=== PATIENT | female | born 1945 | race Caucasian/White ===

== ENCOUNTER 2016-04-27 16:06 | Inpatient (IN) | payer OTHER ==
--- NOTE | 2016-04-27 16:49 | EDPHY ---
H & P Stated Complaint: SOB, sent by PCP for suspect PNA HPI/ROS: CHIEF COMPLAINT: Dyspnea HISTORY OF PRESENT ILLNESS: The patient is a 70 year old female with history of COPD presenting with worsening dyspnea for the past 12 hours. The patient was seen by Dr. Cole over a week ago for upper respiratory infection and was started on Azithromycin. She took a 3 day course and finished the antibiotic yesterday. After being seen again in the office today she was told by her primary care physician to come to the Emergency Department for further evaluation regarding dyspnea with tachypnea. The patient wears 2L O2 at night. She has been unable to carry out her usual activities today because of dyspnea. She denies associated chest pain, calf pain, cough. She quit smoking a few months ago. She has been compliant with her medications including her bronchodilators and inhaled steroid. REVIEW OF SYSTEMS: A ten point review of systems was performed and is negative with the exception of the items mentioned in the HPI. Source: Patient Exam Limitations: No limitations - Personal History Current Tetanus/Diphtheria Vaccine: Yes Current Tetanus Diphtheria and Acellular Pertussis (TDAP): Yes Tetanus Vaccine Date: within 10 years - Medical/Surgical History Hx Asthma: Yes Hx Chronic Respiratory Disease: Yes Hx Diabetes: No Hx Cardiac Disease: Yes Hx Renal Disease: No Hx Cirrhosis: No Hx Alcoholism: No Hx HIV/AIDS: No Hx Splenectomy or Spleen Trauma: No Other PMH: Asthma, HTN, hyperlipidemia, afib s/p ablation in 2002 COPD, sepsis, , exploratory thoracotomy, cervical spine fusion, right knee surgery, L4-5 laminectomy, hemorrhoidectomy, peripheral neuropathy, hypothryoid, GERD - Social History Smoking Status: Former smoker Additional Social History: . Quit smoking a few months ago. - Physical Exam Exam: General Appearance: Alert. Vital signs reviewed. Tachypneic at 24, sitting upright, working to breathe. Eyes: Pupils equal and round, no conjunctival injection, no discharge. Anicteric. ENT, Mouth: Mucous membranes are moist, no oropharyngeal erythema or edema. Neck: No lymphadenopathy, supple. No JVD. Trachea midline. Respiratory: Diminished breath sounds with crackles on the left. Cardiovascular: Regular rate and rhythm; no murmur, rub, or gallop. Gastrointestinal: Abdomen is soft and nontender, no masses or organomegaly, bowel sounds normal. Skin: Warm and dry, no rashes on exposed skin, normal color. Back: Nontender to palpation over the thoracolumbar spine. No CVAT. Extremities: No lower extremity edema, no calf tenderness or swelling. Neurological: Alert and oriented. Moving all four extremities easily and equally. Psychiatric: Normal affect. Constitutional: Initial Vital Signs Temperature (C) 36.7 C 04/27/16 16:22 Heart Rate 91 04/27/16 16:22 Respiratory Rate 18 04/27/16 16:22 Blood Pressure 114/51 L 04/27/16 16:22 O2 Sat (%) 98 04/27/16 16:22 O2 Delivery Mode Room Air Allergies/Adverse Reactions: cortisone Allergy (Intermediate, Verified 09/02/15 12:39) swelling propafenone HCl [From Rythmol] Allergy (Intermediate, Verified 09/02/15 12:39) CONFUSION Sulfa (Sulfonamide Antibiotics) Allergy (Mild, Verified 09/02/15 12:39) Rash Home Medications: Medication Instructions Recorded Estradiol [Estradiol 1 MG (*)] 1 mg PO DAILY 04/27/16 Ezetimibe [Zetia 10 MG (*)] 10 mg PO HS 04/27/16 Furosemide [Lasix 20 MG (*)] 20 mg PO BID 04/27/16 Levothyroxine [Synthroid 137 mcg 137 mcg PO DAILY06 04/27/16 (*)] Metoprolol Tartrate [Lopressor 25 25 mg PO BID 04/27/16 mg (*)] Mometasone Furoate [Asmanex] 220 mcg IH BID 04/27/16 Polyethylene Glycol 3350 [Miralax 17 gm PO BID 04/27/16 17 gm (*)] Potassium Cl [Klor-Con] 10 meq PO TID 04/27/16 Pregabalin [Lyrica] 300 mg PO BID PRN 04/27/16 Rivaroxaban [Xarelto] 20 mg PO DAILY@16 04/27/16 Sertraline HCl [Zoloft 100mg (*)] 100 mg PO DAILY 04/27/16 Simvastatin 40 mg PO HS 04/27/16 Tiotropium Inhaler [Spiriva 18 mcg IH DAILY 04/27/16 Handihaler] Tramadol HCl 50 mg PO TID PRN 04/27/16 Medical Decision Making - Diagnostics Imaging: Study: Chest X-ray. Results: Chronic airways disease. No acute superimposed process. The images were interpreted by the radiologist, Dr. Soares. I viewed the images myself on the PACS system. ED Course/Re-evaluation: The patient was started on DuoNeb treatment. Labs and Chest x-ray are pending. Chest x-ray does not show an infiltrate. Patient re-evaluated at 6:00 p.m. and again at 6:55 p.m.. She continues with tachypnea. She is placed on 2 L nasal cannula oxygen for decrease in pulse ox. While I was speaking with her her pulse ox was 88 - 89% on 2 L. A 2nd breathing treatment will be given. 8:20 p.m.: I reevaluated the patient. She is feeling improved, but not completely normal. Her breath sounds are clear. Respiratory rate is 24. She continues to have worsening shortness of breath with any attempted activities-- even speaking. 8:40 p.m.: I spoke to Dr. Louise, who accepts the patient for admission. I spoke to the patient about trying a small dose of prednisone. She tells me the side effects cause swelling and subsequently refused prednisone. I do not see evidence of pneumonia on her chest x-ray. Influenza testing will be performed. I suspect a viral respiratory infection resulting in exacerbation of her RAD/COPD. Unfortunately, she is unable/unwilling to take steroids (but is on inhaled steroids). She has a negative d-dimer and I do not suspect PE. Troponin is normal, she is not having chest pain and I do not suspect ACS. No signs of heart failure on CXR. Differential Diagnosis: I considered a differential diagnosis includes but is not limited to viral or bacterial pneumonia, influenza, COPD exacerbation,Asthma exacerbation,And heart failure. - Data Points Laboratory Results: Laboratory Results 04/27/16 17:12 04/27/16 17:40 Medications Given: Discontinued Medications Albuterol (Proventil Neb) 3 ml IH EDNOW ONE Stop: 04/27/16 18:57 Last Admin: 04/27/16 19:23 Dose: 3 ml Albuterol/Ipratropium (Duoneb) 3 ml IH EDNOW ONE Stop: 04/27/16 16:57 Last Admin: 04/27/16 17:13 Dose: 3 ml Prednisone (Prednisone) 20 mg PO ONCE ONE Stop: 04/27/16 22:37 Last Admin: 04/27/16 23:04 Dose: 20 mg Departure - Departure Disposition: [facility] Inpatient Acute Clinical Impression: Dyspnea Qualifiers: Dyspnea type: dyspnea on exertion Qualified Code(s): R06.09 - Other forms of dyspnea Emphysema/COPD Qualifiers: Emphysema type: unspecified Qualified Code(s): J43.9 - Emphysema, unspecified Condition: Fair Report Scribed for: Carla Holbrook Report Scribed by: Amy Bashir Date of Report: 04/27/16 Time of Report: 16:57 Physician Review and Approval Statement: 04/27/16 16:49 Portions of this note were transcribed by the anesthesiology medical doctor. I, Dr. Carla Holbrook, personally performed the history, physical exam, and medical decision- making; and confirmed the accuracy of the information in the transcribed note.
[2016-04-27] MEDS ORDERED: IPRATROPIUM/ALBUTEROL 3 ML DEYVIAL IH ONE (16:56)
[2016-04-27 17:19] LABS: % IMMATURE GRANULYOCYTES 0.2 % (0.0-1.1); ABSOLUTE IMMATURE GRANULOCYTES 0.02 10^3/uL (0.00-0.10); ADD DIFF? NO; ADD MORPH? NO; ADD SCAN? NO; ATYPICAL LYMPHOCYTE FLAG 0 (0-99); FRAGMENT RBC FLAG 0 (0-99); HEMATOCRIT 48.2 % (38.0-47.0); HEMOGLOBIN 16.7 g/dL (12.6-16.3); LEFT SHIFT FLG 0 (0-99); LIPEMIA HEMOLYSIS FLAG 90 (0-99); MEAN CELL HEMOGLOBIN 30.6 pg (27.9-34.1); MEAN CELL HEMOGLOBIN CONCENTR. 34.6 g/dL (32.4-36.7); MEAN CELL VOLUME 88.4 fL (81.5-99.8); PLATELET CLUMPS FLAG 0 (0-99); PLATELET COUNT 127 10^3/uL (150-400); RED BLOOD CELL COUNT 5.45 10^6/uL (4.18-5.33); RED CELL DISTRIBUTION WIDTH 13.6 % (11.5-15.2)
[2016-04-27 18:04] LABS: ANION GAP 13 mEq/L (8-16); CALCIUM 8.9 mg/dL (8.5-10.4); CARBON DIOXIDE 19 mEq/l (22-31); CHLORIDE 110 mEq/L (97-110); CREATININE 0.9 mg/dL (0.6-1.0); GLOMERULAR FILTRATION RATE > 60; GLUCOSE 124 mg/dL (70-100); POTASSIUM 3.3 mEq/L (3.5-5.2); SODIUM 142 mEq/L (134-144)
[2016-04-27] MEDS ORDERED: ALBUTEROL 3 ML DEYVIAL IH ONE (18:56)
[2016-04-27 19:13] LABS: TROPONIN I < 0.012 ng/mL (0-0.034)
--- NOTE | 2016-04-27 22:28 | PDGENHP ---
History and Physical History and Physical: HISTORY AND PHYSICAL CC:Shortness of breath with dry cough HISTORY: This patient with known COPD and previous admissions for respiratory failure started having a cough with shortness of breath 4 days ago. There is no associated with any fever, chest pain, leg pain or swelling, sputum production, nausea, headache sinus or throat symptoms, or myalgias or arthralgias. She was started on azithromycin 3 days ago. She has continued her usual inhalers at home which include bronchodilators and steroids. Her symptoms however have gotten a lot worse and she has found it very difficult to walk at a slow pace today. This evening she was trying to eat some soup and was having difficulty eating soup because of dyspnea. ROS: A comprehensive 10 system review revealed no other significant findings PAST MEDICAL HISTORY: COPD Aspiration pneumonia Cor pulmonale Sleep apnea Atrial fibrillation Rythmol induced febrile illness Hypothyroidism Irritable bowel syndrome Bipolar disorder Anxiety disorder Pre diabetes Hysterectomy FAMILY MEDICAL HISTORY: some lung disease also in the family SOCIAL HISTORY: no longer smoking MEDICATIONS: The patients list has been reconciled by our clinical pharmacist in the EMR. I have reviewed the list and ordered appropriate medicines. 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, 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 IV site: looks normal LABORATORY DATA: normal D-dimer and troponin, unremarkable CBC, potassium slightly low at 3.3 RADIOLOGY STUDIES: Chest x-ray in the ER, my personal interpretation of the images: No infiltrates , effusions, or heart failure ASSESSMENT: -Acute hypoxemic respiratory failure -Acute COPD exacerbation -Possible viral respiratory illness, no signs of pneumonia at this time and no specific signs of bacterial infection; flu test has not been done yet -AFib chronic, currently rate controlled on anticoagulation -Hypokalemia PLANS: - inpatient admission as it does not seem likely this patient will recover to the point of going home within 48 hours -Nebulized bronchodilators, steroid, oxygen therapy -Continue her anticoagulation I have reviewed the patient's case in detail with Dr.Martha Holbrook I have reviewed the patient's past medical records as part of this assessment, including previous hospital admission records including physicians notes and labs in radiology studies
[2016-04-27] MEDS ORDERED: ZOLPIDEM TARTRATE 5 MG TAB PO PRN (22:34)
[2016-04-27] MEDS ORDERED: ONDANSETRON 4 MG/2 ML VIAL IVP PRN (22:34)
[2016-04-27] MEDS ORDERED: ONDANSETRON DISINTEGRATING 4 MG TAB PO PRN (22:34)
[2016-04-27] MEDS ORDERED: ALBUTEROL 60 PUFFS/8 GM MDI IH PRN (22:34)
[2016-04-27] MEDS ORDERED: predniSONE 20 MG TAB PO ONE (22:36)
[2016-04-27] MEDS: traMADol 50 MG TAB PO PRN (23:04)
[2016-04-27] MEDS: PREGABALIN 150 MG CAP PO PRN (23:11)
[2016-04-28] MEDS: IPRATROPIUM/ALBUTEROL 3 ML DEYVIAL IH SCH ×4 (05:29→20:43)
[2016-04-28] MEDS: LEVOTHYROXINE 137 MCG TAB PO SCH (06:05)
[2016-04-28] MEDS ORDERED: POTASSIUM CL 10 MEQ TAB PO SCH (09:00)
--- NOTE | 2016-04-28 09:18 | HOSPPROG ---
Hospitalist Progress Note Assessment/Plan: Patient presented to the emergency room with shortness of breath and dry cough. She has had previous admissions for respiratory failure. She has no fever or chest pain or sputum production. She was started on azithromycin 3 days ago. She was admitted for further evaluation. Today is my 1st encounter with the patient. Chart reviewed. * Acute hypoxemic respiratory failure likely due to COPD exacerbation -check her for the influenza/ has had recent fevers and chills * acute COPD exacerbation -patient has emphysema and has seen Dr Calderon * likely a viral upper respiratory infection - reviewed her chest x-ray which shows no infiltrates or effusions /I evaluated this myself *afib -on Xarelto -rate controlled w beta matthew *Hypokalemia -k 3.3 -add electrolyte protocol *polycythemia -likely due to airway disease *sleep apnea -O2 sats on room air while asleep 82%/ wears O2 at night *Plan: will check for influenza, patient will require another midnight stay for further monitoring. Subjective: Tena is feeling poorly today/ still short of breath, tired. Objective: Vital Signs Temp Pulse Resp BP Pulse Ox 36.4 C 95 18 140/79 H 82 L 04/28/16 04:00 04/28/16 07:39 04/28/16 07:39 04/28/16 07:39 04/28/16 07:53 04/27/16 04/28/16 04/29/16 05:59 05:59 05:59 Intake Total 300 Balance 300 - Physical Exam Constitutional: not in pain Eyes: PERRL Ears, Nose, Mouth, Throat: hearing normal Cardiovascular: regular rate and rhythym, no murmur, rub, or gallop Respiratory: no respiratory distress, reduced air movement (bibasilar) Gastrointestinal: normoactive bowel sounds Skin: warm Musculoskeletal: no muscle tenderness Neurologic: AAOx3 Psychiatric: interacting appropriately, not anxious ICD10 Worksheet Patient Problems: Problems Problem Status Onset Dyspnea Acute Emphysema/COPD Acute Atrial fibrillation and flutter Active Osteoarthritis of knee Active Small bowel obstruction Acute
[2016-04-28] MEDS: FUROSEMIDE 20 MG TAB PO SCH ×2 (09:42→15:45)
[2016-04-28] MEDS: SERTRALINE HCL 100 MG TAB PO SCH (09:42)
[2016-04-28] MEDS: ESTRADIOL 1 MG TAB PO SCH (09:42)
[2016-04-28] MEDS: predniSONE 20 MG TAB PO SCH (09:43)
[2016-04-28] MEDS: METOPROLOL TARTRATE 25 MG TAB PO SCH ×2 (09:43→21:56)
[2016-04-28] MEDS: POLYETHYLENE GLYCOL 3350 17 GM PKT PO SCH ×2 (09:46→21:57)
[2016-04-28] MEDS: MOMETASONE 220MCG INHALER IH SCH ×2 (09:47→20:46)
[2016-04-28] MEDS: ACETAMINOPHEN 325 MG TAB PO PRN (12:06)
[2016-04-28] MEDS ORDERED: PROTOCOL POTASSIUM 1 DOSE MISC PRN (12:18)
[2016-04-28] MEDS ORDERED: DILTIAZEM HCL 120 MG PO SCH (13:00)
[2016-04-28] MEDS ORDERED: DILTIAZEM CD 120 MG CAP PO SCH (13:00)
[2016-04-28] MEDS: DILTIAZEM CD 120 MG CAP PO SCH ×2 (13:04→21:56)
[2016-04-28] MEDS: PREGABALIN 150 MG CAP PO PRN ×2 (14:04→22:28)
[2016-04-28] MEDS: traMADol 50 MG TAB PO PRN ×2 (15:45→22:24)
[2016-04-28] MEDS: RIVAROXABAN 20 MG TAB PO SCH (15:45)
[2016-04-28] MEDS ORDERED: POTASSIUM CL 20 MEQ TAB PO SCH (16:00)
[2016-04-28] MEDS ORDERED: DILTIAZEM 60 MG TAB PO SCH (18:00)
[2016-04-28] MEDS ORDERED: OSELTAMIVIR PHOSPHATE 75 MG CAP PO SCH (18:00)
[2016-04-28] MEDS: OSELTAMIVIR PHOSPHATE 75 MG CAP PO SCH (18:29)
[2016-04-28] MEDS: EZETIMIBE 10 MG TAB PO SCH (21:55)
[2016-04-28] MEDS: ATORVASTATIN CALCIUM 20 MG TAB PO SCH (21:55)
[2016-04-28] MEDS: POTASSIUM CL 20 MEQ TAB PO SCH (21:56)
[2016-04-29] MEDS: IPRATROPIUM/ALBUTEROL 3 ML DEYVIAL IH SCH ×4 (05:18→20:31)
[2016-04-29] MEDS: LEVOTHYROXINE 137 MCG TAB PO SCH (05:45)
[2016-04-29] MEDS: MOMETASONE 220MCG INHALER IH SCH ×2 (08:47→20:31)
[2016-04-29] MEDS: SERTRALINE HCL 100 MG TAB PO SCH (09:07)
[2016-04-29] MEDS: ESTRADIOL 1 MG TAB PO SCH (09:07)
[2016-04-29] MEDS: FUROSEMIDE 20 MG TAB PO SCH ×2 (09:07→15:49)
[2016-04-29] MEDS: DILTIAZEM CD 120 MG CAP PO SCH ×2 (09:07→22:02)
[2016-04-29] MEDS: traMADol 50 MG TAB PO PRN ×3 (09:07→22:01)
[2016-04-29] MEDS: predniSONE 20 MG TAB PO SCH (09:07)
[2016-04-29] MEDS: METOPROLOL TARTRATE 25 MG TAB PO SCH ×2 (09:07→22:02)
[2016-04-29] MEDS: POTASSIUM CL 20 MEQ TAB PO SCH ×3 (09:07→22:02)
[2016-04-29] MEDS: OSELTAMIVIR PHOSPHATE 75 MG CAP PO SCH ×2 (09:08→17:54)
[2016-04-29] MEDS: POLYETHYLENE GLYCOL 3350 17 GM PKT PO SCH ×2 (09:12→22:12)
[2016-04-29] MEDS: ACETAMINOPHEN 325 MG TAB PO PRN (09:32)
[2016-04-29] MEDS: PREGABALIN 150 MG CAP PO PRN ×2 (09:32→22:03)
[2016-04-29] MEDS: RIVAROXABAN 20 MG TAB PO SCH (15:50)
--- NOTE | 2016-04-29 16:41 | HOSPPROG ---
Hospitalist Progress Note Assessment/Plan: Patient presented to the emergency room with shortness of breath and dry cough. She has had previous admissions for respiratory failure. She has no fever or chest pain or sputum production. She was started on azithromycin 3 days ago. She was admitted for further evaluation. *Influenza - started treatment last evening - patient feeling poorly today * Acute hypoxemic respiratory failure likely due to COPD exacerbation and influenza - on 2 L of oxygen * acute COPD exacerbation -patient has emphysema and has seen Dr Calderon *afib -on Xarelto -rate controlled w beta matthew *Hypokalemia -k 3.3 - she is on oral potassium three times dailyl *polycythemia -likely due to airway disease *sleep apnea -O2 sats on room air while asleep 82%/ wears O2 at night *Plan: patient is feeling too poorly to be discharged home. Will continue to monitor her closely in the setting that she has influenza with underlying emphysema. She may require antibiotics if she does not improve. Will get repeat labs in the morning. Subjective: patient is feeling poorly /today wants to sleep Objective: Vital Signs Temp Pulse Resp BP Pulse Ox 37.1 C 81 18 97/52 L 90 L 04/29/16 15:16 04/29/16 15:16 04/29/16 15:16 04/29/16 15:16 04/29/16 15:16 04/28/16 04/29/16 04/30/16 05:59 05:59 05:59 Intake Total 300 1000 Balance 300 1000 - Physical Exam Constitutional: not in pain, uncomfortable Eyes: PERRL Ears, Nose, Mouth, Throat: hearing normal Cardiovascular: regular rate and rhythym Respiratory: no respiratory distress, reduced air movement Gastrointestinal: normoactive bowel sounds Skin: warm Musculoskeletal: muscular tenderness ( generalized body tenderness) Neurologic: AAOx3 Psychiatric: interacting appropriately ICD10 Worksheet Patient Problems: Problems Problem Status Onset Chronic Disease Mgmt/Transitional Care Acute Dyspnea Acute Emphysema/COPD Acute Atrial fibrillation and flutter Active Osteoarthritis of knee Active Small bowel obstruction Acute
[2016-04-29] MEDS: ATORVASTATIN CALCIUM 20 MG TAB PO SCH (22:03)
[2016-04-29] MEDS: EZETIMIBE 10 MG TAB PO SCH (22:03)
[2016-04-30] MEDS: IPRATROPIUM/ALBUTEROL 3 ML DEYVIAL IH SCH ×4 (05:10→21:34)
[2016-04-30] MEDS: LEVOTHYROXINE 137 MCG TAB PO SCH (05:34)
[2016-04-30 06:05] LABS: % IMMATURE GRANULYOCYTES 0.5 % (0.0-1.1); ABSOLUTE IMMATURE GRANULOCYTES 0.04 10^3/uL (0.00-0.10); ADD DIFF? NO; ADD MORPH? NO; ADD SCAN? NO; ATYPICAL LYMPHOCYTE FLAG 30 (0-99); FRAGMENT RBC FLAG 0 (0-99); HEMATOCRIT 46.4 % (38.0-47.0); HEMOGLOBIN 15.5 g/dL (12.6-16.3); LEFT SHIFT FLG 0 (0-99); LIPEMIA HEMOLYSIS FLAG 80 (0-99); MEAN CELL HEMOGLOBIN 30.2 pg (27.9-34.1); MEAN CELL HEMOGLOBIN CONCENTR. 33.4 g/dL (32.4-36.7); MEAN CELL VOLUME 90.4 fL (81.5-99.8); MEAN PLATELET VOLUME 12.4 fL (8.7-11.7); PLATELET CLUMPS FLAG 0 (0-99); PLATELET COUNT 137 10^3/uL (150-400); RED BLOOD CELL COUNT 5.13 10^6/uL (4.18-5.33); RED CELL DISTRIBUTION WIDTH 13.6 % (11.5-15.2)
[2016-04-30 06:20] LABS: ALANINE AMINOTRANSFERASE 54 IU/L (9-52); ALBUMIN 3.6 g/dL (3.5-5.0); ALKALINE PHOSPHATASE 58 IU/L (38-126); ANION GAP 12 mEq/L (8-16); ASPARTATE AMINOTRANSFERASE 45 IU/L (14-46); BILIRUBIN,TOTAL 0.5 mg/dL (0.1-1.4); CALCIUM 8.8 mg/dL (8.5-10.4); CARBON DIOXIDE 22 mEq/l (22-31); CHLORIDE 111 mEq/L (97-110); CREATININE 0.9 mg/dL (0.6-1.0); GLOMERULAR FILTRATION RATE > 60; GLUCOSE 97 mg/dL (70-100); POTASSIUM 4.1 mEq/L (3.5-5.2); SODIUM 145 mEq/L (134-144); TOTAL PROTEIN 6.5 g/dL (6.3-8.2)
[2016-04-30] MEDS: MOMETASONE 220MCG INHALER IH SCH ×2 (09:30→21:35)
--- NOTE | 2016-04-30 09:33 | HOSPPROG ---
Hospitalist Progress Note Assessment/Plan: Patient presented to the emergency room with shortness of breath and dry cough. She has had previous admissions for respiratory failure. She has no fever or chest pain or sputum production. She was started on azithromycin 3 days ago. She was admitted for further evaluation. *Influenza - treatment last evening - patient feeling poorly today * Acute hypoxemic respiratory failure likely due to COPD exacerbation and influenza * acute COPD exacerbation -patient has emphysema and has seen Dr Calderon *afib -on Xarelto -rate controlled w beta matthew *Hypokalemia -resolved *polycythemia -likely due to airway disease *sleep apnea -O2 sats on room air while asleep 82%/ wears O2 at night *Plan: feeling a bit better. Will get a chest xray for further eval. If better this afternoon, can be dc Subjective: Tena is feeling 'maybe' better. Objective: Vital Signs Temp Pulse Resp BP Pulse Ox 36.3 C 75 18 121/75 H 93 04/30/16 07:57 04/30/16 07:57 04/30/16 07:57 04/30/16 07:57 04/30/16 07:57 Laboratory Results 04/30/16 05:42 04/30/16 05:42 04/29/16 04/30/16 05/01/16 05:59 05:59 05:59 Intake Total 1000 Balance 1000 - Physical Exam Constitutional: no apparent distress, appears nourished, not in pain Eyes: PERRL Ears, Nose, Mouth, Throat: hearing normal Cardiovascular: regular rate and rhythym Respiratory: no respiratory distress, other (lung sounds tight at the bases) Skin: warm, normal color Musculoskeletal: full muscle strength Neurologic: AAOx3 Psychiatric: interacting appropriately, not anxious ICD10 Worksheet Patient Problems: Problems Problem Status Onset Chronic Disease Mgmt/Transitional Care Acute Dyspnea Acute Emphysema/COPD Acute Atrial fibrillation and flutter Active Osteoarthritis of knee Active Small bowel obstruction Acute
[2016-04-30] MEDS: OSELTAMIVIR PHOSPHATE 75 MG CAP PO SCH ×2 (09:47→18:49)
[2016-04-30] MEDS: ESTRADIOL 1 MG TAB PO SCH (09:47)
[2016-04-30] MEDS: FUROSEMIDE 20 MG TAB PO SCH ×2 (09:47→15:57)
[2016-04-30] MEDS: traMADol 50 MG TAB PO PRN ×3 (09:47→21:11)
[2016-04-30] MEDS: POTASSIUM CL 20 MEQ TAB PO SCH ×3 (09:48→21:10)
[2016-04-30] MEDS: POLYETHYLENE GLYCOL 3350 17 GM PKT PO SCH ×2 (09:48→21:14)
[2016-04-30] MEDS: predniSONE 20 MG TAB PO SCH (09:48)
[2016-04-30] MEDS: SERTRALINE HCL 100 MG TAB PO SCH (09:48)
[2016-04-30] MEDS: DILTIAZEM CD 120 MG CAP PO SCH ×2 (09:48→21:10)
[2016-04-30] MEDS: PREGABALIN 150 MG CAP PO PRN ×2 (09:48→21:14)
[2016-04-30] MEDS: METOPROLOL TARTRATE 25 MG TAB PO SCH ×2 (09:48→21:09)
[2016-04-30] MEDS: RIVAROXABAN 20 MG TAB PO SCH (15:57)
[2016-04-30] MEDS: EZETIMIBE 10 MG TAB PO SCH (21:13)
[2016-04-30] MEDS: ATORVASTATIN CALCIUM 20 MG TAB PO SCH (21:13)
[2016-05-01] MEDS: ACETAMINOPHEN 325 MG TAB PO PRN (05:18)
[2016-05-01] MEDS: LEVOTHYROXINE 137 MCG TAB PO SCH (05:20)
[2016-05-01] MEDS: IPRATROPIUM/ALBUTEROL 3 ML DEYVIAL IH SCH ×2 (06:23→09:44)
[2016-05-01] MEDS: predniSONE 20 MG TAB PO SCH (08:28)
[2016-05-01] MEDS: FUROSEMIDE 20 MG TAB PO SCH (08:29)
[2016-05-01] MEDS: OSELTAMIVIR PHOSPHATE 75 MG CAP PO SCH (08:29)
[2016-05-01] MEDS: DILTIAZEM CD 120 MG CAP PO SCH (08:29)
[2016-05-01] MEDS: SERTRALINE HCL 100 MG TAB PO SCH (08:29)
[2016-05-01] MEDS: ESTRADIOL 1 MG TAB PO SCH (08:30)
[2016-05-01] MEDS: POLYETHYLENE GLYCOL 3350 17 GM PKT PO SCH (08:30)
[2016-05-01] MEDS: POTASSIUM CL 20 MEQ TAB PO SCH (08:30)
[2016-05-01] MEDS: METOPROLOL TARTRATE 25 MG TAB PO SCH (08:30)
[2016-05-01] MEDS: PREGABALIN 150 MG CAP PO PRN ×2 (08:56→09:13)
--- NOTE | 2016-05-01 09:17 | HOSPPROG ---
Hospitalist Progress Note Assessment/Plan: Patient presented to the emergency room with shortness of breath and dry cough. She has had previous admissions for respiratory failure. She has no fever or chest pain or sputum production. She was started on azithromycin 3 days ago. She was admitted for further evaluation. *Influenza A - slow to improve, but better -chest xray shows nothing acute * Acute hypoxemic respiratory failure likely due to COPD exacerbation and influenza * acute COPD exacerbation -patient has emphysema and has seen Dr Calderon *afib -on Xarelto -rate controlled w beta matthew *Hypokalemia -resolved *polycythemia -likely due to airway disease *sleep apnea -O2 sats on room air while asleep 82%/ wears O2 at night *Plan: home today Subjective: Tena is slowly feeling better. Objective: Vital Signs Temp Pulse Resp BP Pulse Ox 36.3 C 68 18 125/66 H 94 05/01/16 08:24 05/01/16 08:24 05/01/16 08:24 05/01/16 08:24 05/01/16 08:24 Laboratory Results 04/30/16 05:42 04/30/16 05:42 - Physical Exam Constitutional: no apparent distress, appears nourished Eyes: PERRL Ears, Nose, Mouth, Throat: hearing normal Cardiovascular: regular rate and rhythym Respiratory: no respiratory distress, reduced air movement (slightly but better) Gastrointestinal: normoactive bowel sounds Skin: warm Musculoskeletal: no muscle tenderness Neurologic: AAOx3 Psychiatric: interacting appropriately ICD10 Worksheet Patient Problems: Problems Problem Status Onset Chronic Disease Mgmt/Transitional Care Acute Dyspnea Acute Emphysema/COPD Acute Atrial fibrillation and flutter Active Osteoarthritis of knee Active Small bowel obstruction Acute
[2016-05-01] MEDS: MOMETASONE 220MCG INHALER IH SCH (09:44)
[2016-05-01] MEDS ORDERED: CALCIUM CARBONATE 500 MG CHEWABLE TAB PO PRN (09:47)
--- NOTE | 2016-05-01 11:39 | GDS ---
DISCHARGE DIAGNOSES: 1. Influenza A. 2. Acute hypoxemic respiratory failure/multifactorial. 3. Acute chronic obstructive pulmonary disease exacerbation. 4. Atrial fibrillation. 5. Hypokalemia. 6. Polycythemia. 7. Sleep apnea. HISTORY: Briefly, the patient is a 70-year-old woman with known COPD and previous admissions for respiratory failure. She started having cough and shortness of breath. She had no fever or chest pain. She was started on azithromycin 3 days prior to admission, but she was still feeling poorly. She was seen and evaluated at [facility]. It was noted that she was positive for the influenza A. She improved during her stay. She had a chest x -ray performed yesterday that showed no evolving pneumonia. HOSPITAL COURSE: Per problem: 1. Influenza A. Continue treatment at home, recommending she take it easy for the next several days. 2. Acute hypoxemic respiratory failure. This is secondary to COPD exacerbation and influenza. She will be on oxygen around the clock until she follows up with her primary care provider. 3. Acute COPD exacerbation. She has underlying emphysema and sees the reconditioner in the outpatient setting. Further followup. 4. Atrial fibrillation, on Xarelto, rate controlled with beta matthew. 5. Hypokalemia, resolved. 6. Polycythemia. This is due to airway disease. 7. Sleep apnea. This is ongoing. She wears oxygen at night. PENDING LABS AND TESTS: None. CONDITION ON DISCHARGE: Stable. Blood pressure is 125/66, O2 sats on 1 L 94%. Respiratory rate is 18. Pulse is 68. Temperature is 36.3 Celsius. DISCHARGE MEDICATIONS: Please see the EMR. DISCHARGE INSTRUCTIONS: 1. Further followup with her reconditioner. 2. To take it easy for the next several days. 3. If she develops fever, chills, chest pain, or shortness of breath, return to the ER. Greater than 30 minutes discharging and coordinating care. /[id number]/MODL MTDD
[2016-05-01 11:53] VITALS: BP 118/69; PULSE 80; RESP 18; TEMP 97.2; O2SAT 93
== END 2016-05-01 13:33 | disposition home or self-care (01) | DRG 193 ==
LOC: F3E 21:20 → OBSVTOIN 22:34
PROVIDERS: ADMIT Internal Medicine; ATTEND Family Medicine
DX: J10.1 Influenza due to other identified influenza virus with other respiratory manifestations (principal); J44.1 Chronic obstructive pulmonary disease with (acute) exacerbation; J96.01 Acute respiratory failure with hypoxia; I10 Essential (primary) hypertension; I48.91 Unspecified atrial fibrillation; E87.6 Hypokalemia; D75.1 Secondary polycythemia; E03.9 Hypothyroidism, unspecified; K21.9 Gastro-esophageal reflux disease without esophagitis; G47.33 Obstructive sleep apnea (adult) (pediatric); E78.5 Hyperlipidemia, unspecified; Z99.81 Dependence on supplemental oxygen; Z87.891 Personal history of nicotine dependence; Z98.1 Arthrodesis status

== ENCOUNTER → 2016-06-19 | Outpatient (CLI) | payer OTHER | LOC: FIMAGING 10:57 | DX: Z12.31 Encounter for screening mammogram for malignant neoplasm of breast (principal); Z80.3 Family history of malignant neoplasm of breast | CPT/HCPCS: G0202 ==

== ENCOUNTER → 2017-07-07 | Outpatient (CLI) | payer OTHER | LOC: FIMAGING 11:23 | DX: Z12.31 Encounter for screening mammogram for malignant neoplasm of breast (principal); Z80.3 Family history of malignant neoplasm of breast ==

== ENCOUNTER → 2017-11-26 | Outpatient (CLI) | payer OTHER | LOC: BHCLAF 14:15 | PROVIDERS: ATTEND Internal Medicine Cardiovascular Disease | DX: I48.91 Unspecified atrial fibrillation (principal); I10 Essential (primary) hypertension; I34.0 Nonrheumatic mitral (valve) insufficiency; E78.5 Hyperlipidemia, unspecified | CPT/HCPCS: 93005-PO ==

== ENCOUNTER → 2017-12-24 | Outpatient (CLI) | payer OTHER | LOC: BHCLAF 10:00 | PROVIDERS: ATTEND Internal Medicine Cardiovascular Disease | DX: I34.0 Nonrheumatic mitral (valve) insufficiency (principal); I10 Essential (primary) hypertension; I48.91 Unspecified atrial fibrillation | CPT/HCPCS: 93306-PO ==

== ENCOUNTER → 2018-02-22 | Outpatient (CLI) | payer OTHER | LOC: BHFA 13:00 | PROVIDERS: ATTEND Internal Medicine Interventional Cardiology | DX: I48.91 Unspecified atrial fibrillation (principal); I34.0 Nonrheumatic mitral (valve) insufficiency | CPT/HCPCS: 78452; 93017; A9500; J2785 ==

== ENCOUNTER → 2018-07-11 | Outpatient (CLI) | payer OTHER | LOC: FIMAGING 11:26 | DX: Z12.31 Encounter for screening mammogram for malignant neoplasm of breast (principal); Z80.3 Family history of malignant neoplasm of breast ==